=== PATIENT | female | born 1985 | race Caucasian/White ===

== ENCOUNTER → 2023-10-11 14:50 | Outpatient (CLI) | payer BC, SELFPAY ==
[2023-10-11 15:26] LABS: Add Manual Diff / Slide Review NO; Basophils Absolute Auto 100 /uL (0-100); Basophils Percent Auto 0.6 % (0-2); Eosinophils Absolute Auto 300 /uL (0-450); Eosinophils Percent Auto 3.4 % (2-4); Hematocrit 43.3 % (36-46); Hemoglobin 15.1 g/dL (12.0-16.0); Lymphocytes Absolute Auto 2600 /uL (1100-4500); Lymphocytes Percent Auto 26.5 % (25-40); Mean Corpuscular HGB Conc 34.8 % (30-36); Mean Corpuscular Hemoglobin 32.1 PG (26-34); Mean Corpuscular Volume 92.3 fL (80-100); Monocytes Absolute Auto 400 /uL (0-900); Monocytes Percent Auto 4.1 % (3-14); Neutrophils Absolute Auto 6400 /uL (1500-7000); Neutrophils Percent Auto 65.4 % (50-75); Platelet Count 299 X10^3/uL (150-400); Red Blood Cell Count 4.69 X10^6/uL (4.0-5.2); Red Cell Distribution Width 13.6 % (11.6-14.8); White Blood Cell Count 9.8 X10^3/uL (4.5-11.0)
[2023-10-11 15:42] LABS: Alanine Aminotransferase 47 IU/L (<35); Albumin 4.5 g/dL (3.5-5.0); Albumin Globulin Ratio 1.3 (1.0-2.8); Alkaline Phosphatase 54 U/L (38-126); Aspartate Aminotransferase 34 IU/L (14-36); BUN Creatinine Ratio 12.9 (6-22); Bilirubin Total 1.2 mg/dL (0.2-1.3); Blood Urea Nitrogen 9 mg/dL (7-17); Calcium 9.3 mg/dL (8.4-10.2); Carbon Dioxide 26 mmol/L (22-32); Chloride 108 mmol/L (98-107); Cholesterol 279 mg/dL (140-199); Estimated Glomerular Filt Rate > 60 mL/min (>60); Globulin 3.4 g/dL (1.7-4.1); Glucose 119 mg/dL (70-100); HDL Cholesterol 53 mg/dL (40-60); HEMOLYSIS < 15 (0-50); LDL Cholesterol Calculated 163 mg/dL (<100); Potassium 4.5 mmol/L (3.4-5.1); Sodium 140 mmol/L (137-145); Total Protein 7.9 g/dL (6.3-8.2); Triglycerides 316 mg/dL (35-150)
[2023-10-11 16:46] LABS: Free T4, Direct Thyroxine 0.66 ng/dL (0.78-2.19)
== END ==
PROVIDERS: PCP Family Medicine; Referring Provider Family Medicine; Visit Provider Family Medicine
DX: E66.9 Obesity, unspecified (principal); R53.83 Other fatigue
CPT/HCPCS: 36415; 80053; 80061; 84439; 84443; 85025

== ENCOUNTER → 2023-11-07 08:47 | Outpatient (CLI) | payer BC, SELFPAY ==
[2023-11-07 11:15] LABS: HIV 1 & 2 Ab/Ag 4th Gen Combo NEGATIVE (NEGATIVE)
[2023-11-07 12:27] LABS: Urine N gonorrhoeae NOT DETECTED
[2023-11-07 12:33] LABS: Urine Chlamydia NOT DETECTED
[2023-11-08 08:14] LABS: RPR Screen Non Reactive (Non Reactive)
== END ==
PROVIDERS: PCP Family Medicine; Referring Provider Family Medicine; Visit Provider Family Medicine
DX: Z11.3 Encounter for screening for infections with a predominantly sexual mode of transmission (principal)
CPT/HCPCS: 36415; 86592; 87389; 87491; 87522; 87591

== ENCOUNTER → 2023-12-12 15:09 | Outpatient (CLI) | payer BC, SELFPAY ==
[2023-12-12 16:57] LABS: Alanine Aminotransferase 35 IU/L (<35); Albumin 4.3 g/dL (3.5-5.0); Albumin Globulin Ratio 1.2 (1.0-2.8); Alkaline Phosphatase 77 U/L (38-126); Aspartate Aminotransferase 29 IU/L (14-36); BUN Creatinine Ratio 15.9 (6-22); Bilirubin Total 0.8 mg/dL (0.2-1.3); Blood Urea Nitrogen 11 mg/dL (7-17); Calcium 9.2 mg/dL (8.4-10.2); Carbon Dioxide 23 mmol/L (22-32); Chloride 104 mmol/L (98-107); Estimated Glomerular Filt Rate > 60 mL/min (>60); Globulin 3.7 g/dL (1.7-4.1); Glucose 123 mg/dL (70-100); HEMOLYSIS 15 (0-50); Potassium 3.9 mmol/L (3.4-5.1); Sodium 138 mmol/L (137-145)
[2023-12-12 17:00] LABS: Hemoglobin A1C% w Est Avg Glu 5.5 % (4.0-6.0)
[2023-12-12 17:32] LABS: TSH w/ Reflex to FT4 5.74 uIU/mL (0.47-4.68)
[2023-12-12 17:57] LABS: Free T4, Direct Thyroxine 1.04 ng/dL (0.78-2.19)
== END ==
PROVIDERS: PCP Family Medicine; Referring Provider Family Medicine; Visit Provider Family Medicine
DX: R03.0 Elevated blood-pressure reading, without diagnosis of hypertension (principal); E03.9 Hypothyroidism, unspecified; E66.9 Obesity, unspecified
CPT/HCPCS: 36415; 80053; 83036; 84439; 84443

== ENCOUNTER 2023-12-30 03:43 | Emergency (ER) | payer BC, SELFPAY ==
[2023-12-30 03:52] VITALS: BP 123/86; PULSE 126; RESP 18; TEMP 36.8; O2SAT 96; BMI 33.3
--- NOTE | 2023-12-30 03:56 | ED_ITS ---
HPI - Altered Mental Status General Chief Complaint: Shortness of Breath/Dyspnea Stated Complaint: CP Time Seen by Provider: 12/30/23 03:49 History of Present Illness HPI narrative: Patient is a 38-year-old female brought in by EMS for initial complaint of shortness of breath. Patient is currently intoxicating she does admit to drinking vodka and admitted to drinking beer with EMS. Denies any other drug use. She apparently was a little combative and got Versed with EMS. She is uns ure why she is here, refusing to answer many questions. She does report that she has been pooping blood for the last 3 days but says that it has stopped. Records have been reviewed she was seen by her primary care physician history of anxiety on Celexa, hypertension on losartan taking control, and was prescribed hydroxyzine. Boyfriend who apparently was also intoxicated came and said that he woke up and she was freaking out and he called 911. He has not sure why and is apologetic. Related Data Home Medications Medication Instructions Recorded Confirmed omeprazole 20 mg capsule,delayed 20 mg PO DAILY 10/09/23 12/12/23 release Previous Rx's Medication Instructions Recorded losartan 25 mg tablet 25 mg PO DAILY #30 tabs 11/07/23 levothyroxine 75 mcg tablet 75 mcg PO DAILY #30 tabs 11/23/23 (Synthroid) citalopram 10 mg tablet 10 mg PO DAILY #30 tabs 12/04/23 hydroxyzine HCl 25 mg tablet 25 mg PO BID PRN anxiety #30 tabs 12/12/23 Allergies Allergy/AdvReac Type Severity Reaction Status Date / Time amoxicillin Allergy Severe Swelling Verified 12/12/23 14:31 of Lip/Tongue/Throat Patient History Social History Smoking Status: Current some day smoker Smoking Status: Current some day smoker Exam Initial Vital Signs Initial Vital Signs: Vital Signs Temperature 98.3 F 12/30/23 03:52 Pulse Rate 126 H 12/30/23 03:52 Respiratory Rate 18 12/30/23 03:52 Blood Pressure 123/86 12/30/23 03:52 Pulse Oximetry 96 12/30/23 03:52 Oxygen Delivery Method Room Air 12/30/23 03:52 GENERAL: Well-appearing, well-nourished and in no acute distress. CARDIOVASCULAR: peripheral pulses in tact, cap refill <2 sec RESPIRATORY: No respiratory distress, speaks in full sentences without difficulty EXTREMITIES: Normal range of motion, no clubbing or edema. Neurovascularly i ntact NEUROLOGICAL: Cranial nerves II through XII grossly intact. Normal gait and speech. Steady gait, minimal speech slurring SKIN: Warm, dry, no petechiae, no rashes or lesions. Course Vital Signs Vital signs: Vital Signs - 8 hr 12/30/23 03:52 Temperature 98.3 F Pulse Rate 126 H Respiratory Rate 18 Blood Pressure 123/86 Pulse Oximetry 96 Oxygen Delivery Method Room Air MDM - Altered Mental Status MDM Narrative Medical decision making narrative: As patient multiple times multiple different ways why she is here what is going on. She only reports that she is pooping blood she does not know why she is here. For to check her blood levels she really only wants to talk to her primary care physician my I have told her that that is not an option currently. She is getting more and more aggressive in differences with questioning she no longer wants to be here. She has gotten up and walked out of the department. We were able to pull her IV. She has a steady gait. Boyfriend is here he also has some slurring of speech. He continues to be apologetic. He reports that he got here by taxi cab. Patient is noted to be tachycardic but she is intoxicated and she is quite agitated. Though she reports bloody stool she also reports that it stopped. She probably needs outpatient follow-up. But she is quite adamant that she does not want to be here she wants no further workup and she wants nothing else to do. She is intoxicated but clinically sober with a steady gait. She is going home with her boyfriend. Ultimately the police were called to take him home so that they did not walk or drive. They left prior to discharge paperwork Discharge Plan Departure Patient Disposition: Home Clinical Impression: Alcohol intoxication Prescriptions: No Action omeprazole 20 mg capsule,delayed release(DR/EC) 20 mg PO DAILY losartan 25 mg tablet 25 mg PO DAILY Qty: 30 2RF hydroxyzine HCl 25 mg tablet 25 mg PO BID PRN (Reason: anxiety) Qty: 30 1RF levothyroxine [Synthroid] 75 mcg tablet 75 mcg PO DAILY Qty: 30 0RF citalopram 10 mg tablet 10 mg PO DAILY Qty: 30 5RF Referrals: Chel Chong MD [Primary Care Provider] - Stand Alone Forms: Patient Portal/API
== END 2023-12-30 04:13 | disposition home or self-care (01) ==
PROVIDERS: Emergency Provider Emergency Medicine; PCP Family Medicine
DX: F10.129 Alcohol abuse with intoxication, unspecified (principal)
CPT/HCPCS: 99281

== ENCOUNTER → 2024-02-06 17:12 | Outpatient (CLI) | payer BC, SELFPAY ==
[2024-02-06 18:03] LABS: Add Manual Diff / Slide Review NO; Basophils Absolute Auto 100 /uL (0-100); Basophils Percent Auto 0.7 % (0-2); Eosinophils Absolute Auto 300 /uL (0-450); Eosinophils Percent Auto 3.2 % (2-4); Hematocrit 41.7 % (36-46); Hemoglobin 14.4 g/dL (12.0-16.0); Lymphocytes Absolute Auto 2900 /uL (1100-4500); Lymphocytes Percent Auto 32.4 % (25-40); Mean Corpuscular HGB Conc 34.5 % (30-36); Mean Corpuscular Hemoglobin 31.8 PG (26-34); Monocytes Absolute Auto 400 /uL (0-900); Monocytes Percent Auto 4.1 % (3-14); Neutrophils Absolute Auto 5400 /uL (1500-7000); Neutrophils Percent Auto 59.6 % (50-75); Platelet Count 315 X10^3/uL (150-400); Red Blood Cell Count 4.53 X10^6/uL (4.0-5.2); Red Cell Distribution Width 13.7 % (11.6-14.8)
[2024-02-06 18:16] LABS: Alanine Aminotransferase 29 IU/L (<35); Albumin 4.5 g/dL (3.5-5.0); Albumin Globulin Ratio 1.4 (1.0-2.8); Alkaline Phosphatase 59 U/L (38-126); Aspartate Aminotransferase 23 IU/L (14-36); Bilirubin Total 0.8 mg/dL (0.2-1.3); Blood Urea Nitrogen 9 mg/dL (7-17); Calcium 9.4 mg/dL (8.4-10.2); Carbon Dioxide 27 mmol/L (22-32); Chloride 104 mmol/L (98-107); Estimated Glomerular Filt Rate > 60 mL/min (>60); Globulin 3.3 g/dL (1.7-4.1); Glucose 102 mg/dL (70-100); HEMOLYSIS < 15 (0-50); Potassium 4.2 mmol/L (3.4-5.1); Sodium 138 mmol/L (137-145); Total Protein 7.8 g/dL (6.3-8.2)
[2024-02-06 18:36] LABS: Erythrocyte Sedimentation Rate 8 MM/HR (0-20)
[2024-02-06 18:48] LABS: Thyroid Stimulating Hormone 6.23 uIU/mL (0.47-4.68)
== END ==
PROVIDERS: PCP Family Medicine; Referring Provider Family Medicine; Visit Provider Family Medicine
DX: E03.9 Hypothyroidism, unspecified (principal); K92.1 Melena; R79.89 Other specified abnormal findings of blood chemistry; I10 Essential (primary) hypertension
CPT/HCPCS: 36415; 80053; 84443; 85025; 85651

== ENCOUNTER 2024-10-06 01:33 | Emergency (ER) | payer BC, SELFPAY ==
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
[2024-10-06 01:37] VITALS: BP 153/100; PULSE 106; RESP 16; TEMP 36.7; O2SAT 98; BMI 31.9
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
[2024-10-06 02:48] VITALS: BP 137/95; PULSE 95; RESP 16; O2SAT 97
== END 2024-10-06 02:49 | disposition home or self-care (01) ==
PROVIDERS: Emergency Provider Student in an Organized Health Care Education/Training Program; PCP Family Medicine
DX: S00.83XA Contusion of other part of head, initial encounter (principal); W18.30XA Fall on same level, unspecified, initial encounter
CPT/HCPCS: 70450; 72125; 99281; 99284

== ENCOUNTER → 2024-11-06 15:05 | Outpatient (CLI) | payer BC, SELFPAY ==
[2024-11-06 16:02] LABS: Alanine Aminotransferase 37 IU/L (<35); Albumin 4.7 g/dL (3.5-5.0); Albumin Globulin Ratio 1.4 (1.0-2.8); Alkaline Phosphatase 57 U/L (38-126); Blood Urea Nitrogen 11 mg/dL (7-17); Calcium 9.4 mg/dL (8.4-10.2); Carbon Dioxide 25 mmol/L (22-32); Chloride 102 mmol/L (98-107); Estimated Glomerular Filt Rate > 60 mL/min (>60); Globulin 3.3 g/dL (1.7-4.1); Glucose 153 mg/dL (70-99); HEMOLYSIS < 15 (0-50); Potassium 3.6 mmol/L (3.4-5.1); Sodium 139 mmol/L (137-145); Total Protein 8.0 g/dL (6.3-8.2)
== END ==
PROVIDERS: Student in an Organized Health Care Education/Training Program; PCP Family Medicine; Referring Provider Family Medicine; Visit Provider Family Medicine
DX: Z51.81 Encounter for therapeutic drug level monitoring (principal)
CPT/HCPCS: 36415; 80053